=== PATIENT | male | born 1960 | race Caucasian/White ===

== ENCOUNTER 2017-01-05 13:14 | Emergency (ER) | payer BC ==
[~2017-01-05] VITALS: Ht 170.2 cm; Wt 110.0 kg
[2017-01-05] MEDS ORDERED: PRAV40TA2 (13:29)
[2017-01-05] MEDS ORDERED: CLOP75TA2 (13:29)
[2017-01-05] MEDS ORDERED: METO50TA7 (13:29)
[2017-01-05] MEDS ORDERED: HYDR-3363 (13:29)
[2017-01-05] MEDS ORDERED: DIAZ2TAB (13:29)
[2017-01-05] MEDS ORDERED: PANT40TA2 (13:29)
[2017-01-05] MEDS ORDERED: CLON-412 (13:29)
[2017-01-05 13:57] LABS: BASO % 0.4 % (0.0-1.0); EOS # 0.1 10^3/uL (0.0-0.50); EOS % 1.3 % (0.0-3.0); IMMATURE GRANULOCYTE % 0.5 % (0-0); LYMPH # 1.5 10^3/uL (1.5-4.5); MEAN CORPUSCULAR HEMOGLOBIN 28.5 pg (27.0-33.0); MEAN CORPUSCULAR HGB CONC 32.6 g/dl (32.0-36.5); MEAN CORPUSCULAR VOLUME 87.3 fl (80.0-96.0); MONO # 0.7 10^3/uL (0.0-0.8); MONO % 8.1 % (0.0-5.0); NEUTROPHILS # 5.9 10^3/uL (1.8-7.7); NEUTROPHILS % 71.7 % (36.0-66.0); PLATELET COUNT, AUTOMATED 172 10^3/uL (150-450); RED CELL DISTRIBUTION WIDTH 13.7 % (11.5-14.5); WHITE BLOOD COUNT 8.2 10^3/uL (4.0-10.0)
[2017-01-05 13:59] LABS: INR 0.94
--- NOTE | 2017-01-05 14:04 | REP ---
Chest one-view HISTORY: Chest pain Comparison: None The lungs are clear. The heart is normal in size. The pulmonary vasculature is normal in appearance. Impression: No acute disease. Signed by Magdi King MD 01/05/2017 01:56 P
[2017-01-05 14:28] LABS: ALBUMIN 3.6 GM/DL (3.2-5.2); ALBUMIN/GLOBULIN RATIO 0.97 (1.00-1.93); ALKALINE PHOSPHATASE 85 U/L (45-117); ALT/SGPT 33 U/L (12-78); ANION GAP 8 MEQ/L (8-16); AST/SGOT 26 U/L (15-37); BILIRUBIN,DIRECT 0.2 MG/DL (0.0-0.2); BILIRUBIN,TOTAL 0.7 MG/DL (0.2-1.0); BLOOD UREA NITROGEN 10 MG/DL (7-18); CALCIUM LEVEL 8.6 MG/DL (8.5-10.1); CARBON DIOXIDE LEVEL 28 MEQ/L (21-32); CHLORIDE LEVEL 104 MEQ/L (98-107); CREATININE FOR GFR 0.94 MG/DL (0.70-1.30); GLOMERULAR FILTRATION RATE > 60.0 (>56); GLUCOSE, FASTING 107 MG/DL (70-105); POTASSIUM SERUM 4.3 MEQ/L (3.5-5.1); SODIUM LEVEL 140 MEQ/L (136-145); TOTAL PROTEIN 7.3 GM/DL (6.4-8.2)
[2017-01-05] MEDS ORDERED: ACETAMINOPHEN TAB 650MG DOSE (2X325MG) PO ONE (17:00)
--- NOTE | 2017-01-05 18:13 | ECGEPIP ---
Stationary ECG Study 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
--- NOTE | 2017-01-05 18:17 | ECGEPIP ---
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
[2017-01-05 19:21] VITALS: BP 147/74
[2017-01-05] MEDS ORDERED: PERCOCET 5MG/325MG TAB PO ONE (19:45)
== END 2017-01-05 20:00 | disposition home or self-care (01) ==
LOC: EDUNIT# 13:14 → EDBD 13:14 → M ED 13:14
DX: R07.89 Other chest pain (principal); I51.9 Heart disease, unspecified; I25.2 Old myocardial infarction; I10 Essential (primary) hypertension; E78.5 Hyperlipidemia, unspecified; K21.9 Gastro-esophageal reflux disease without esophagitis; Z82.49 Family history of ischemic heart disease and other diseases of the circulatory system; Z79.899 Other long term (current) drug therapy

== ENCOUNTER → 2017-03-03 | Outpatient (CLI) | payer BC ==
[~2017-03-03] MED LIST: CLON-412; CLOP75TA2; DIAZ2TAB; HYDR-3363; METO50TA7; PANT40TA2; PRAV40TA2
[2017-03-03 20:17] LABS: LUTEINIZING HORMONE 5.6 mIU/mL (1.5-9.3); PROLACTIN 15.6 NG/ML (2.1-17.7)
[2017-03-03 20:18] LABS: ESTRADIOL 29.9 PG/ML (<39.8); FOLLICLE STIMULATING HORMONE 8.7 mIU/mL (1.4-18.1)
[2017-03-03 20:20] LABS: ALBUMIN 3.8 GM/DL (3.2-5.2); ALBUMIN/GLOBULIN RATIO 1.06 (1.00-1.93); BILIRUBIN,DIRECT 0.2 MG/DL (0.0-0.2); BILIRUBIN,TOTAL 0.7 MG/DL (0.2-1.0); TOTAL PROTEIN 7.4 GM/DL (6.4-8.2)
[2017-03-07 00:07] LABS: HCG SERUM TUMOR MARKER QUANT < 1 mIU/mL (0-3)
== END ==
LOC: M LRY 11:46
PROVIDERS: ATTEND Surgery
DX: N62 Hypertrophy of breast (principal)

== ENCOUNTER → 2024-12-02 | Outpatient (CLI) | payer OTHER ==
[~2024-12-02] MED LIST changes: -PANT40TA2; +PANT40TA29; -PRAV40TA2; +PRAV40TA85
== END ==
LOC: M SLEEP HO 10:53
DX: G47.33 Obstructive sleep apnea (adult) (pediatric) (principal)

== ENCOUNTER → 2025-03-14 | Outpatient (CLI) | payer OTHER | LOC: M RAD 08:04 | PROVIDERS: ATTEND Neurological Surgery | DX: M48.061 Spinal stenosis, lumbar region without neurogenic claudication (principal) ==